=== PATIENT | male | born 1995 | race Caucasian/White ===

== ENCOUNTER 2024-12-08 09:22 | Emergency (ER) | payer OTHER, SELFPAY ==
[2024-12-08 09:24] VITALS: BP 146/110
--- NOTE | 2024-12-08 10:43 | ED.GENMED ---
History of Present Illness
General
Chief Complaint: Throat Problem
Source: patient
Time Seen by Provider: 12/08/24 10:35
Nursing documentation reviewed up to this point in time: agreed with
History of Present Illness
History of Present Illness:
Patient is a 29-year-old male who presents to the ER for evaluation. He reports prior to arrival he was taking a large glucosamine pill and instead of swallowing he believes he inhaled a thinks he aspirated the pill. He does however feel a'
scratchy sore sensation' in his throat when he swallows. He reports he is able to swallow his own secretions he is anxious and was coughing and vomiting.
He denies any actual shortness of breath.
Past History
Past History
ED Past Medical History: None; Negative Asthma, HTN, Hypercholesterolemia or NIDDM
ED Past Surgical History: Other (Right 9th and 10th rib surgery)
Social History
Tobacco: Non-smoker
Alcohol: None
Personal:
Living: with family
Review of Systems
Review of Systems
Allergies reviewed?: Yes
All Other Systems: ROS reviewed and negative except as documented in HPI and ROS
Constitutional: Reports no symptoms
Respiratory: Reports other (pt feels that he 'aspirated a pill' )
Cardiac: Reports no symptoms
ABD/GI: Reports no symptoms
Musculoskeletal: Reports no symptoms
Skin: Reports no symptoms
Neurological: Reports no symptoms
Psychiatric: Reports no symptoms
Phy Exam
General Physical Exam
General Presentation: no apparent distress
General age: appears stated age
General Skin: warm and dry
General Habitus: normal
General Mental: alert
General Hydration: appears well hydrated
ENT Exam
ENT Exam: EOMI, neck supple and other (No drooling pharynx nml tolerating secretions well )
Cardiovascular Exam
Cardiovascular Exam: tachycardia
Pulmonary Exam
Pulmonary Exam: lungs clear, no respiratory distress, no stridor and no cough
Course
Orders/Labs/Results
Orders:
Orders
12/08/24 10:42
Chest [CR Chest - 2 Views ] Urgent
Comment:
Reason For Exam: possible fb aspiration
12/08/24 12:18
Vital Signs- Treatment ONCE
Frequency: Once
Vital Signs
Initial and Last Documented VS:
Initial Vital Signs
Temp Pulse Resp BP Pulse Ox
98.1 F 132 20 146/110 100
12/08/24 09:24 12/08/24 09:24 12/08/24 09:24 12/08/24 09:24 12/08/24 09:24
Last Documented Vital Signs
Temp Pulse Resp BP Pulse Ox
98.1 F 102 18 148/94 100
12/08/24 09:24 12/08/24 12:29 12/08/24 12:29 12/08/24 12:29 12/08/24 12:29
MDM/Problems Addressed
MDM/Problems Addressed:
As documented patient is a 29-year-old male who presented to the ER for evaluation. Patient was taking a large glucosamine capsule and he coughs inhaled and was not sure if he aspirated. He however at the same time describes feeling irritation in
his throat. He is able to swallow his own secretions there is no drooling. There is no stridor his lungs are clear he is not toxic-appearing, not hypoxic x-ray negative for foreign body x-ray negative for any other additional findings. Patient is
very anxious it is possible that he scraped his esophagus.
Discussed with patient cool soothing nonirritating foods and liquids and if needed outpatient follow-up with ENT.
*Radiology
Radiology exam reviewed: radiology read reviewed
*Pulse Oximetry
Patient hypoxic: no
*Critical Care Note
Total Time (30-74mins, 75-104mins- exclusive of procedures): Not Applicable
ED Attending Note
-
Portions of this chart may have been created with voice recognition software.� Occasional wrong word or��sound alike� substitutions may have occurred due to the inherent limitations of voice recognition software.
Discharge Plan
Departure
Patient Disposition: Home (Routine Discharge)
Date of Disposition: 12/08/24
Time of Disposition: 12:24
Patient with high blood pressure during this ER visit?: Yes
Condition: Fair
Covid-19: Not Applicable
Discharge Problem:
Throat irritation
Instructions: BLOOD PRESSURE
Prescriptions:
No Action
No Current Medications
0
Referrals:
Yovani Santana DO [Family Provider] -
Handy Alexander MD [Active] -
Activity Restrictions/Additional Instructions:
As discussed soothing cool liquids and foods.
Follow-up with ENT as needed in the next several days call Tuesday to make an appointment. Follow-up with your family doctor. Return her to the ER for any worsening of symptoms including difficulty breathing or swallowing/swallowing your own
secretions
Interventions
Interventions:
*Risk Screen - Suicide Last Done: 12/08/24 11:20
*General Assessment Last Done: 12/08/24 11:20
*Neglect/Abuse Screening Last Done: 12/08/24 11:20
*ED- Fall Risk Assessment Last Done: 12/08/24 11:20
*ED COVID-19 Vaccine History Last Done: 12/08/24 11:20
*Nursing Disposition Last Done: 12/08/24 12:49
ED-EENT Assessment Last Done: 12/08/24 11:20
ED- Pulmonary Assessment Last Done: 12/08/24 11:20
Discharge Date and Time
Discharge Date/Time: 12/08/24 12:50
Print Language: NAURUAN
[2024-12-08 12:29] VITALS: BP 148/94
== END 2024-12-08 12:50 | disposition home or self-care (01) ==
LOC: EMR 09:22
PROVIDERS: EMERGENCY PHYSICIAN Emergency Medicine; FAMILY PHYSICIAN Family Medicine
DX: R07.0 Pain in throat (principal)
CPT/HCPCS: 99283; 71046

== ENCOUNTER 2025-09-16 14:31 | Emergency (ER) | payer OTHER, SELFPAY ==
[2025-09-16] VITALS (38 sets, daily range): BP systolic 54–145; BP diastolic 12–117; PULSE 124–163; BMI 23.1
[2025-09-16 14:54] LABS: Hematocrit 43.6 % (39.0-52.0); Hemoglobin 13.1 g/dL (13.0-18.0); Mean Corp Hgb Conc. 30.0 g/dL (33.0-37.0); Mean Corpuscular Volume 95.8 fL (80.0-94.0); Platelet Count 150 10^3/uL (130-400); Red Cell Dist. Width 11.9 % (11.5-14.5)
[2025-09-16 14:59] LABS: INR 2.38; PT 26.2 Sec (11.4-14.6)
[2025-09-16 15:14] LABS: Nucleated Red Blood Cells % 1.1 % (-)
--- NOTE | 2025-09-16 15:27 | EDRN ---
Patient arrives at 1426 via EMS after a witnessed arrest. Patient had recent surgery for floating rib on the right side at [facility].
Patient was awake and alert when police arrived and c/o SOB. Patient arrested and police started CPR just before EMS arrived. Patient was intubated in the field and brought to ED.
Patient was intubated using 6.5 ETT measuring 24 at the lip.
Patient was shocked once by EMS for Vfib
A total of 7 epi given by EMS
2 of Atropine given by EMS
Right leg IO inserted by EMS
Patient had no pulse upon arrival and CPR was initiated at 1426. (see code sheet)
--- NOTE | 2025-09-16 15:35 | ED.GENMED ---
History of Present Illness
General
Chief Complaint: CODE
Source: family and ambulance crew
Exam Limitations: none
Time Seen by Provider: 09/16/25 14:31
Nursing documentation reviewed up to this point in time: agreed with
History of Present Illness
History of Present Illness:
30-year-old male presents emergency department via EMS with cardiac arrest. CPR in progress upon arrival. He had a syncope episode after complaining of shortness of breath at home. His called EMS. EMS arrived and he went into cardiac arrest
at 1:25 PM. He had an episode of ventricular fibrillation and was shocked. He did have return of circulation for 5 to 10 minutes. He then went into cardiac arrest again. He was intubated in the field. He was given multiple rounds of
epinephrine. He had surgery to remove a right lower rib about 2 weeks ago at [facility].
Past History
Past History
ED Past Medical History: None; Negative Asthma, HTN, Hypercholesterolemia or NIDDM
ED Past Surgical History: Other (Right 9th and 10th rib surgery)
Social History
Tobacco: Non-smoker
Alcohol: None
Personal:
Living: with family
Review of Systems
Review of Systems
Allergies reviewed?: Yes
All Other Systems: Not applicable
Phy Exam
Physical Exam
Physical Exam:
CODE EXAM:
VITAL SIGNS: No palpable blood pressure, no pulses, no respiration.
GENERAL EXAM: Mottled
EYES: Pupils fixed
ENT: Patient intubated
NECK: No venous distention
RESPIRATORY: Equal breath sounds, post op scar right lower chest
CARDIAC: Absent heart sounds
VASCULAR: Absent pulses
ABDOMEN: Soft no masses
GUAIAC: Not done
MUSCULOSKELETAL: Unable to evaluate strength
EXTREMITIES: No edema or contractures
SKIN: No rash
PSYCH: Mood, affect unable to evaluate
Course
Orders/Labs/Results
Orders:
Orders
09/16/25 14:32
Alteplase [Activase] 50 mg .ROUTE .STK-MED ONE
Alteplase [Activase] 50 mg .ROUTE .STK-MED ONE
09/16/25 14:42
Electrocardiogram (*1) Urgent
Reason for Study: Chest Pain
EKG- Treatment ONCE
09/16/25 14:44
Complete Blood Count/With Diff Urgent
Lactate Level [Lactic Acid] Urgent
Prothrombin Time Urgent
09/16/25 14:58
CT Head W/o Iv Contrast Urgent
Comment:
Reason For Exam: cardiac arrest
CT Pe/abd/pel W Urgent
Comment:
Reason For Exam: cardiac arrest
09/16/25 15:20
Basic Metabolic Panel Urgent
Troponin I Urgent
09/16/25 15:37
ABG [Arterial Blood Gas] Urgent
%Oxygen/Room Air: 85/100%fio2
09/16/25 15:43
Cardiothoracic Surgery Consult Urgent
Consulting Provider: Rajinder Hoffman
Was physician already notified: Yes
09/16/25 15:44
Echo 2D MMode Color/Doppler Stat
Reason for Study: cardiac arrest
09/16/25 15:51
EPINEPHrine 4 mg/250 mL NSS [Adrenalin] 4 mg in 250 ml IV NOW
Initial dose in mcg/min, then titrate:: 4
Titrate to keep:: MAP > 65 mmHg
Titrate by mcg/min:: 0.5-1 mcg/min
Frequency of titrations (minutes):: 5
Maximum dose in mcg/min:: 10
Begin to taper infusion when:: Remained at goal for 4hrs
Taper by mcg/min:: 0.5-1 mcg/min
Frequency of taper (minutes) if patient maintains goal:: 30
Taper to off?: Yes
If infusion off & no longer maintaining goal:: Contact Provider
09/16/25 15:59
Prothrombin Time Stat
09/16/25 16:06
Lactated Ringers [Lr] 500 ml IV BOLUS
09/16/25 16:10
Midazolam HCl [Versed] 2 mg .ROUTE .STK-MED ONE
Propofol 1,000,000 Mcg/100 ml [Diprivan] 1,000,000 mcg in 100 ml .ROUTE .STK-MED
09/16/25 16:11
Sodium Bicarbonate 100 meq .ROUTE .STK-MED ONE
09/16/25 16:15
CR Chest Portable - 1 View Stat
Reason For Exam: CODE
09/16/25 16:28
Fentanyl Citrate/Pf [Sublimaze] 100 mcg .ROUTE .STK-MED ONE
09/16/25 16:37
Vecuronium [place] [Norcuron] 7 mg IV Q1HPRN PRN
Vital Signs As Directed
Frequency: Other
Additional Instructions:: every 15 minutes x 1 hour
09/16/25 16:45
NORepinephrine 4 MG/250 ML [Levophed] 4 mg in 250 ml IV PER PROTOCOL
09/16/25 16:59
Albumin Human 5% 250 ml [Albumin 5%] 12.5 grams in 250 ml IV NOW
09/16/25 17:00
FentaNYL 1,000 MCG/100 ML [Sublimaze] 1,000 mcg in 100 ml IV PER PROTOCOL
Fentanyl Citrate/Pf [Sublimaze] 50 mcg IV [id number] PRN
Propofol 1,000,000 Mcg/100 ml [Diprivan] 1,000,000 mcg in 100 ml IV PER PROTOCOL
09/16/25 17:15
Carboxymethylcellulose [Refresh Celluvisc Gel] See Dose Instructions OPHTH NOW ONE
09/16/25 17:23
Sodium Bicarbonate 200 meq .ROUTE .STK-MED ONE
09/16/25 17:34
Sodium Bicarbonate 100 meq IV NOW STA
09/16/25 17:37
Calcium Gluconate 1 gram/100mL [Calcium Gluconate] 1 gram in 100 ml IV ONCE
09/16/25 17:45
Dextrose 5%/Water 1000 ml [D5w] 1,000 ml Sodium Bicarbonate 150 meq IV 75 mls/hr
09/16/25 18:00
Flush (0.9% Sodium Chloride) [Flush (Nss)] See Dose Instructions IV PER PROTOCOL
09/16/25 18:15
NORepinephrine 4 MG/250 ML [Levophed] 4 mg in 250 ml IV PER PROTOCOL
Initial dose in mcg/min, then titrate:: 4
Titrate to keep:: MAP > 65 mmHg
Titrate by mcg/min:: 1-2 mcg/min
Frequency of titrations (minutes):: 5
Maximum dose in ICU in mcg/min:: 30
Maximum dose in IMU in mcg/min:: 8
Maximum dose in IVU in mcg/min:: 4
Begin to taper infusion when:: Remained at goal for 4hrs
Taper by mcg/min:: 1-2 mcg/min
Frequency of taper (minutes) if patient maintains goal:: 30
Taper to off?: Yes
If infusion off & no longer maintaining goal:: Contact Provider
09/16/25 18:30
ABG with Lytes, iCa [Arterial Blood Gas, Lytes, iCa] Stat
%Oxygen/Room Air: 70% FiO2
Lactate Level [Lactic Acid] Stat
09/16/25 19:00
Heparin 37184 Units/250 ml 25,000 units in 250 ml IV PER PROTOCOL
09/16/25 19:08
Triglycerides Routine
Comment: baseline levels with propofol infusion
09/16/25 19:15
Propofol 1,000,000 Mcg/100 ml [Diprivan] 1,000,000 mcg in 100 ml IV PER PROTOCOL
Indication:: Light Sedation
Begin Infusion:: Now
Goal:: RASS 0 to -2
Maximum dose in mcg/kg/min:: 50
Initial Dose in mcg/kg/min:: 30
Titration Instructions:: Titrate by 5-10 mcg/kg/min every 5 minutes until RASS 0 to -2 achieved.
Taper Instructions:: If RASS is at or below goal for 4 consecutive hours decrease infusion by
Taper Instructions:: 5-10 mcg/kg/min every 2 hours to off.
Over-sedation Instructions:: If CPOT 0-2 (at goal) AND RASS -3 to -5 (below goal) decrease sedative by
Over-sedation Instructions:: 50% first. If pain score remains at goal and RASS remains below goal in
Over-sedation Instructions:: 1 hour, decrease opioid infusion by 50%.
Notify provider:: immediately if patient exhibits signs/symptoms of propofol-related
Notify provider:: infusion syndrome.
Additional Instructions:: Patient MUST be mechanically ventilated and MUST recieve analgesia
09/16/25 19:32
Cr Chest Portable [CR Chest Portable - 1 View] Urgent
Comment:
Reason For Exam: ETT placement
Reason Study Needs to be Portable: Unable to Transport
09/16/25 19:41
Cr Chest Portable [CR Chest Portable - 1 View] Urgent
Comment:
Reason For Exam: ETT placement
Reason Study Needs to be Portable: Patient Unstable
09/16/25 19:49
Sodium Bicarbonate 150 meq .ROUTE .STK-MED ONE
09/16/25 20:21
Potassium Urgent
09/17/25 08:00
Polyethylene Glycol Powder [Miralax] 17 grams TUBE DAILY
09/19/25 06:00
Triglycerides Q3D
Comment: every 72 hours while patient is on propofol
09/22/25 06:00
Triglycerides Q3D
Comment: every 72 hours while patient is on propofol
09/25/25 06:00
Triglycerides Q3D
Comment: every 72 hours while patient is on propofol
Abnormal Lab Results
09/16/25 09/16/25 09/16/25
14:44 15:20 15:37
WBC 12.9 H 10^3/uL
(4.8-10.8)
RBC 4.55 L 10^6/uL
(4.70-6.10)
MCV 95.8 H fL
(80.0-94.0)
MCHC 30.0 L g/dL
(33.0-37.0)
Abs Immat Gran (auto) 0.5 H 10^3/uL
(0-0.05)
Absolute Lymphs (auto) 7.4 H 10^3/uL
(1.2-3.4)
Absolute Monos (auto) 1.0 H 10^3/uL
(0.1-0.6)
Immature Gran % 3.8 H %
(0-0.5)
Neutrophils % 28.8 L %
(42.2-75.2)
Lymphocytes % 57.3 H %
(20.5-51.1)
PT 26.2 H Sec
(11.4-14.6)
pH < 6.80 L*
(7.35-7.45)
pCO2 88 H* mmHg
(35-48)
HCO3
ABG O2 Sat (Measured) 92.5 L %
(94-98)
Chloride 94 L mmol/L
(98-107)
Carbon Dioxide 10 L* mmol/L
(22-30)
Glucose 155 H mg/dl
(70-99)
Lactic Acid 23.1 H* mmol/L
(0.7-2.0)
Calcium 10.9 H mg/dl
(8.4-10.2)
Troponin I 0.348 H* ng/ml
12/15/
18:30
WBC
RBC
MCV
MCHC
Abs Immat Gran (auto)
Absolute Lymphs (auto)
Absolute Monos (auto)
Immature Gran %
Neutrophils %
Lymphocytes %
PT
pH 7.21 L
(7.35-7.45)
pCO2
HCO3 18.8 L mmol/L
(21-28)
ABG O2 Sat (Measured)
Chloride
Carbon Dioxide
Glucose
Lactic Acid 15.1 H* mmol/L
(0.7-2.0)
Calcium
Troponin I
09/16/25 14:44
Vital Signs
Initial and Last Documented VS:
Initial Vital Signs
Pulse Resp
133 53
09/16/25 14:49 09/16/25 14:49
Last Documented Vital Signs
Temp Pulse Resp BP
93.6 F L 147 33 98/72
09/16/25 15:51 09/16/25 20:00 09/16/25 20:00 09/16/25 20:00
MDM/Problems Addressed
Differential Diagnosis Includes:
Acute coronary syndrome, bilateral PE, dysrhythmia
MDM/Problems Addressed:
30-year-old male arrived as cardiac arrest. Extensive CPR and ACLS provided, tPA given to patient upon arrival due to high suspicion for pulmonary embolism. Patient had cardiac arrest and return of spontaneous circulation multiple times, and then
was maintained on a Levophed drip. There was difficulty maintaining his oxygenation, despite effective endotracheal intubation. [facility] ECMO team consulted, who accepted patient. Cardiothoracic surgery Dr. Hoffman and
team initiated ECMO. Some improvement seen on ABG and maintenance of oxygenation. Patient had decorticate movement and CT scan shows signs of anoxic brain injury. Discussed at length with family the likelihood of chronic disability and the
severity and critical condition. Helicopter unavailable due to weather, currently awaiting ground ECMO team from [place].
*Radiology
Radiology exam reviewed: radiology read reviewed (CT head shows no intracranial hemorrhage, generalized diminished white matter attenuation likely reflecting early anoxic encephalopathy, CT chest/ab/pel shows bilateral pe w/ large clot burden, rib
fractures, sternal fracture)
*Pulse Oximetry
SaO2: 78
Oxygen Mode of Delivery: Ventilator
Patient hypoxic: yes
*EKG
Interpreted by ED Provider?: Yes
EKG Intrepretation Date: 09/16/25
EKG Intrepretation Time: 14:43
Interpretation: abnormal
Comparison EKG: no comparison EKG present
Heart Rate: 144
Rate: tachycardiac
Rhythm: sinus tachycardia
[place]: normal axis
Interval: normal interval
QRS Pattern: right bundle branch block
Ischemia: non-specific ST changes
*Occupational Safety Specialist Interpretation
Rate: tachycardiac
Interpretation: abnormal
Heart Rate: 130
Rhythm: sinus tachycardia
*Critical Care Note
Total Time (30-74mins, 75-104mins- exclusive of procedures): 150
comment:
Critical care statement: A total of 150 minutes of critical care time was provided for this patient. This includes management of unstable vital signs, evaluation of the patient at bedside, reviewing the patient's pertinent medical records,
discussion with consultants, review of old EKGs and review of pertinent medical records. This time with separate from time utilized to perform the aforementioned documented procedures
Patient Management
Social determinants of health affecting care: Living situation and Strong social support
Discussion with other providers: Floorworker (cardiology Dr. Rodriguez, CT surgery Dr. Hoffman)
Escalation/DeEscalation of care consider admission/obs:
transfer indicated for ECMO
ED Attending Note
-
Portions of this chart may have been created with voice recognition software.� Occasional wrong word or��sound alike� substitutions may have occurred due to the inherent limitations of voice recognition software.
Discharge Plan
Departure
Patient Disposition: Acute Care Hospital
Date of Disposition: 09/16/25
Time of Disposition: 16:06
Patient with high blood pressure during this ER visit?: No
Condition: Critical
Discharge Problem:
Bilateral pulmonary embolism, Cardiac arrest
Prescriptions:
No Action
No Current Medications
0
Referrals:
UNKNOWN,NO INTERVIEW [Family Provider]
Hospital Transfer
Other hospital: [facility]
I certify that the patient requires transfer: Yes
Discussed case with accepting physician: [facility]
Reason for transfer: higher level of care, availability of service and specialties available
Interventions
Interventions:
ED- Cardiac Assessment Last Done: 09/16/25 15:40
ED- Pulmonary Assessment Last Done: 09/16/25 15:38
Discharge Date and Time
Print Language: FINNISH
[2025-09-16 15:48] LABS: Blood Urea Nitrogen 9 mg/dl (9-20); Calcium 10.9 mg/dl (8.4-10.2); Carbon Dioxide 10 mmol/L (22-30); Chloride 94 mmol/L (98-107); Estimated Creatinine Clearance 74 ml/min; Glucose 155 mg/dl (70-99); Sodium 135 mmol/L (135-145); eGFR > 60.00
[2025-09-16 15:51] LABS: O2 Saturation % 92.5 % (94-98); PO2 101 mmHg (83-108)
[2025-09-16 15:57] LABS: PCO2 88 mmHg (35-48)
[2025-09-16 15:58] LABS: Troponin I 0.348 ng/ml
--- NOTE | 2025-09-16 16:04 | CON.CAR ---
Consultation
Consultation Request
Date/Time Consultation Requested: September 16, 2025 3:48 PM
Date/Time Consultation Performed: September 16, 2025 4:18 pm
Requesting Provider: ER and CTS
Performing Provider: Miguel Rodriguez
Reason for Consultation: Cardiac arrest
Medical History
-
Chief Complaint: Cardiac arrest
History of Present Illness:
30-year-old male with history of thoracic outlet syndrome and first rib removal who presented unconscious after cardiac arrest. The HPI was obtained through chart review and in discussion with other physicians/PAs and emergency room staff as
patient is intubated.
Past Medical History
Past Medical History: Other (thoracic outlet syndrome)
Past Surgical History: Other (first rib removal )
Social History
Tobacco: Non-Smoker
Alcohol: None
Personal:
Living: With Family
Family History
Family History: Unable to Obtain
Allergies / Home Medications
Allergy/AdvReac Type Severity Reaction Status Date / Time
No Known Allergies Allergy Verified 12/08/24 09:25
�Medication �Instructions �Recorded �Confirmed �Type
No Meds [No Current Medications] 06/19/20 06/19/20 History
Review of Systems
-
Unable to obtain full review of systems at this time due to: Patient Intubation
Physical Exam
Vital Signs
Temp Pulse Resp BP
93.6 F L 118 18 115/75
09/16/25 15:51 09/16/25 15:20 09/16/25 15:20 09/16/25 15:20
Lab Results
09/16/25 14:44
Troponin I 0.348 ng/ml H* 09/16/25 15:20
Physical Exam
General: Intubated
HEENT: Normocephalic
Cardiac: S1/S2 and Regular Rhythm
Skin: Warm and Dry
Neuro: Other (intubated )
Psych: Other (intubated )
Impression / Plan
-
A/P: 30-year-old male with past medical history of thoracic outlet syndrome status post first rib removal is here after cardiac arrest. A limited echocardiogram was performed. His overall LV function appears normal. However, his RV appears
dilated with reduced systolic function, concerning for possible pulmonary embolism. We discussed with CT surgery about our findings and he will undergo [facility]. Additionally, he will then be transferred to [facility].
Data Reviewed
-
EKG: Tracing Personally Visualized and interpreted (sinus rbbb)
Labs: Labs Reviewed by me
Critical Care Time (in minutes): 31
[2025-09-16] MEDS: ADRENALIN 250 IV (17:22)
--- NOTE | 2025-09-16 17:26 | EDRN ---
Norepi was stopped and Epi infusion started.
--- NOTE | 2025-09-16 17:37 | W.PN.UPDATE ---
Update Note
Progress Note Update
BEDSIDE PROCEDURE NOTE:
Patient seen during ECMO code, after patient was put on [facility] ecmo by attending surgeons/CT team, Right radial arterial line placed by me for hemodynamic monitoring. Pt already intubated, small doses of sedation given during ecmo procedure. No local
was used due to patients mental status.
Skin prepped with chloraprep, art line placed and flushed with pressure line. biopatch and clean dressing placed. No complications encountered. Mean arterial pressure 63, no significant waveform to evaluate due to [facility] ecmo.
--- NOTE | 2025-09-16 17:38 | W.PN.CT.SURG ---
CT Surgery Operative Note
-
CARDIAC SURGERY OPERATIVE REPORT
Preoperative Diagnosis: Cardiac arrest likely from massive pulmonary embolus
Postoperative Diagnosis: Same
Procedure(s) Performed:
1. Right femoral venous ECMO cannulation
2. Left femoral arterial ECMO cannulation
3. Distal perfusion limb to left superficial femoral artery
Date of Surgery: 09/16/2025
Comorbidities:
1. Thoracic outlet syndrome, recent first rib resection
Attending Surgeon: Pamela Hopper MD, MPH
Co-surgeon: Rajinder Hoffman MD, MS (assisted in all aspects of cannulation and initiation of ECMO)
Assistants: Rajinder Galvez PA-C assisted with cannulation and all portions of the procedure
Anesthesiology: n/a
Scrub and Circulating RNs: Christine Eduardo, LISA, Sonia Simon, LISA
Selling Manager: Shantanu Small CCP
Anesthesia: Patient was on ventilator, had been intubated in the field during resuscitation
Products: None
Indication(s) for Procedures: This is a 30-year-old male who presented to [facility] emergency department after witnessed code at home. CPR had been initiated in the field, per report patient had syncope after complaint of shortness of breath at home
after which his called EMS and when his cardiac arrest happened at 1325. ACLS was performed with ROSC for approximately 5 to 10 minutes then into another cardiac arrest at which point he was intubated. Patient arrived to ED and extremis,
cardiac surgical team was called for consideration of ECMO given presumed massive PE. A quick bedside echo was performed showing good LV function with significant straining of the RV and severe dilation. Decision was made to proceed with
venoarterial ECMO cannulation.
Description of Procedure: The patient was supine with arms tucked on the side. The groins were shaved, prepped and draped in sterile fashion to access bilateral groins. A sterile ultrasound was used to identify the vessels. We were able to gain
access to the right femoral vein and left common femoral artery and placed J wires. A [address] in each vessel and CXR was used to verify placement. At this point, 10,000u of Heparin were given and we confirmed ACT > 250 after
appropriate time. We serially dilated the track on each side then placed our cannulas without complications. We placed a 17 Fr arterial and 25 Fr venous multistage cannula without complication. Each cannula was then connected to the ECMO lines
ensuring no air within the lines. Placement of cannulas was then confirmed on CXR and ECMO was initiated. A distal perfusion catheter was then placed within the left SFA using ultrasound guidance. The vessel was identified and accessed using
micropuncture needle. A 6Fr sheath was placed using Seldinger technique and this was connected to a pigtail line attached to our arterial cannula. We additionally placed a left femoral venous central line to access for medication administration.
This was done using ultrasound guidance and an additional 6 Setswana sheath was placed.
All instrument, sponge, and needle counts were confirmed to be correct x 2 at the end of the operation. The patient was transferred to the cardiac intensive care unit in critical but stable condition.
I, Dr. Pamela Hopper, was present, scrubbed for, and performed all critical elements of this procedure.
Pamela Hopper MD, MS
Cardiothoracic Surgeon
[facility]
This operative dictation was created using the [employer] dictation system. Please excuse any grammatical, typographical, or 'sound alike' errors
--- NOTE | 2025-09-16 17:46 | EDRN ---
Late notes
Patient was taken to Ct scan at 1501 and returned to ED room 41 at 1518
16French Thermister rivera inserted at 1550, core temp 34.2C
Albumin was given by CHRISTIAN at 1649 and run wide open.
Patient was given versed at 1627
100mcg Fentanyl was given at 1630
10k of Heparin was given at 1617
ECMO was started at 1625
--- NOTE | 2025-09-16 17:50 | EDRN ---
Currently
Patient has epi infusion running at 6mcg/min through left wrist IV
KVO left orange sheath.
Patient has right radial A line for BP.
Solar Energy Advisor is currently bedside monitoring ECMO till pickup time via [facility] at approx 2030
--- NOTE | 2025-09-16 18:05 | EDRN ---
Levophed restarted at this time, initial rate of 4
[2025-09-16] MEDS: LEVOPHED 250 IV (18:06)
[2025-09-16] MEDS: SODIUM BICARBONATE 1150 MEQ IV (18:11)
[2025-09-16 18:42] LABS: B.E. -8.9 mmol/L; HCO3 18.8 mmol/L (21-28); O2 Saturation % 97.8 % (94-98); PCO2 47 mmHg (35-48); PO2 84 mmHg (83-108); Potassium 4.2 mMOL/L (3.5-5.1); Sodium 140 mMOL/L (136-145)
--- NOTE | 2025-09-16 18:48 | EDRN ---
No significant change in the patient's status at this time.
New labs ordered and sent
Patient has non purposeful movement at this time w/ some decorticate posturing.
ETA for [facility] is still approx 2030
[2025-09-16] MEDS: DIPRIVAN 100 IV (19:13)
--- NOTE | 2025-09-16 19:18 | W.PN.UPDATE ---
Update Note
Progress Note Update
Delayed chart entry.
Was called by transfer center from [place] with our ED and CT Surgeon Dr. Pantera Benavides. This is a 30yo male who suddenly collapsed, s/p 1st rib resection done electively at [facility]. He had approximately 45min down time in the field with CPR done by
EMS on site at his home, with additional CPR here with ROSC, but was hemodynamically labile. We discussed his prognosis, and likely cause for cardiovascular collapse to be a massive PE. He was given TPA as well. Surface ECHO revealed a significantly
dilated RV with severely reduced function and empty LV. We ultimately decided that given his age, we would place him on VA ECMO. I had the discussion with his spouse and mother regarding his prognosis. Given the extended down of hypoxia, there is
very likely significant anoxic brain injury. They wished to proceed. Plan will be to initiate VA ECMO at my site, and then transfer to [facility] for additional care.
--- NOTE | 2025-09-16 19:47 | EDRN ---
ETT advanced to 27 at the Lip w/ verification via XRAY.
--- NOTE | 2025-09-16 21:03 | EDRN ---
250ml Albumin infusion started by Plant Attendant Or Assistant Operator
--- NOTE | 2025-09-16 21:05 | EDRN ---
Dr. Hoffman bedside.
Commercial Lines Manager giving calcium chloride push dose along with more bicarb at this time.
[facility] approx 20 minutes for pickup time.
[2025-09-16] MEDS: SUBLIMAZE 50 MCG IV (21:12)
--- NOTE | 2025-09-17 06:17 | ITS.CL.PN ---
[facility] - Procedure Note
Procedure
Procedure Note:
DELAYED ECMO MANAGEMENT NOTE and LINE SWAP:
30yo male, in cardiorespiratory failure with cardiogenic shock, on levo and epi gtts. ECMO initiated with 17F art in LCFA and 15F Venous in RCFV with DPL in L SFA and LCFV 6F sheath for venous access. Once ECMO initiated, he maintained flows between
3.6-4.2 based on volume status.
Assessment / Exam: No purposeful movement, there was some decerebrate posturing, clampign down on ET, and tachypneic. Cold (34 degrees C).
Plan: Give 250 5% albumins as needed for volume to avoid chattering on the lines, maintain slows closer to 4+ LPM on pump, come down on Epi gtt to 2 and ok to maintaining levo as high as 20. Will initiate 50 of propofol gtt as he is clamping down on
ETT and intermittent Fentanyl 50mcg pushes for pain control (seemed to help decrease his RR of 34 to 20s after). Expect him to have some [place] Syndrome once LV starts to fill and he starts to ejected, so monitor ABGs via R Radial. Place vent
onto lung rest settings, elevated PEEP to 10, decreased RR, and TV down to 300. Maintain FiO2 at 60-70 for now based on gas, let ECMO do majority of oxygenation/sweep. Can titrate down sweep as needed.
I swapped the lines to the transport [facility] when they arrived, lines were prepped with Chlorhexadine and allowed to dry, I then double clamped the lines after turning off our ECMO circuit, divided the transport circuit, and then wet mated the
arterial to arterial and venous to venous with no visual bubbles in the lines. We then increased flows on cardiohelp with the appropriate return and forward flow with good visual color change in the corresponding lines.
Critical Care Time: 180mins
[2025-09-17 07:42] LABS: B.E. - POC -3.0 mmol/L; Glucose - POC 212 mg/dl (70-99); HCO3 - POC 23 mmol/L (21-28); Hematocrit - POC 30 % PCV (42-52); Hemodilution- POC Yes; Hemoglobin Calculated - POC 10.1; Ionized Calcium - POC 1.06 mmol/L (1.15-1.33); Lactate - POC 12.19 mmol/L (0.36-0.75); O2 Saturation %Calculated-POC 99.7 % (94-98); PCO2 - POC 46 mmHg (35-48); PO2 - POC 228 mmHg (83-108); POC Comment ECMO; Potassium - POC 3.7 mmol/L (3.5-5.1); Sodium - POC 148 mmol/L (136-145); Specimen Type - POC Arterial; pH - POC 7.31 (7.35-7.45)
[2025-09-17 07:59] LABS: B.E. - POC -19.0 mmol/L; Glucose - POC 134 mg/dl (70-99); HCO3 - POC 14 mmol/L (21-28); Hematocrit - POC 36 % PCV (42-52); Hemodilution- POC Yes; Hemoglobin Calculated - POC 12.4; Ionized Calcium - POC 1.33 mmol/L (1.15-1.33); Lactate - POC 17.16 mmol/L (0.36-0.75); O2 Saturation %Calculated-POC 96.9 % (94-98); PCO2 - POC 73 mmHg (35-48); PO2 - POC 149 mmHg (83-108); POC Comment ECMO; Potassium - POC 4.5 mmol/L (3.5-5.1); Sodium - POC 143 mmol/L (136-145); Specimen Type - POC Arterial; pH - POC 6.91 (7.35-7.45)
[2025-09-17 07:59] LABS: B.E. - POC -11.3 mmol/L; Glucose - POC 121 mg/dl (70-99); HCO3 - POC 17 mmol/L (21-28); Hematocrit - POC 34 % PCV (42-52); Hemodilution- POC Yes; Hemoglobin Calculated - POC 11.7; Ionized Calcium - POC 1.42 mmol/L (1.15-1.33); Lactate - POC 19.12 mmol/L (0.36-0.75); O2 Saturation %Calculated-POC 94.8 % (94-98); PCO2 - POC 50 mmHg (35-48); PO2 - POC 96 mmHg (83-108); Potassium - POC 4.7 mmol/L (3.5-5.1); Sodium - POC 147 mmol/L (136-145); Specimen Type - POC Arterial; pH - POC 7.15 (7.35-7.45)
[2025-09-17 08:00] LABS: ACT+ - POC 376 Seconds (82-134)
[2025-09-17 08:00] LABS: B.E. - POC -8.8 mmol/L; Glucose - POC 167 mg/dl (70-99); HCO3 - POC 19 mmol/L (21-28); Hematocrit - POC 30 % PCV (42-52); Hemodilution- POC Yes; Hemoglobin Calculated - POC 10.2; Ionized Calcium - POC 1.23 mmol/L (1.15-1.33); Lactate - POC 14.11 mmol/L (0.36-0.75); O2 Saturation %Calculated-POC 98.4 % (94-98); PCO2 - POC 49 mmHg (35-48); PO2 - POC 138 mmHg (83-108); POC Comment ECMO; Potassium - POC 3.8 mmol/L (3.5-5.1); Sodium - POC 147 mmol/L (136-145); Specimen Type - POC Arterial; pH - POC 7.20 (7.35-7.45)
[2025-09-17 08:00] LABS: B.E. - POC -8.8 mmol/L; Glucose - POC 136 mg/dl (70-99); HCO3 - POC 19 mmol/L (21-28); Hematocrit - POC 32 % PCV (42-52); Hemodilution- POC Yes; Hemoglobin Calculated - POC 10.9; Ionized Calcium - POC 1.25 mmol/L (1.15-1.33); Lactate - POC 14.94 mmol/L (0.36-0.75); O2 Saturation %Calculated-POC 91.2 % (94-98); PCO2 - POC 48 mmHg (35-48); PO2 - POC 75 mmHg (83-108); POC Comment ECMO; Potassium - POC 4.0 mmol/L (3.5-5.1); Sodium - POC 146 mmol/L (136-145); Specimen Type - POC Arterial; pH - POC 7.21 (7.35-7.45)
[2025-09-17 08:00] LABS: ACT+ - POC 351 Seconds (82-134)
[2025-09-17 08:01] LABS: ACT+ - POC 263 Seconds (82-134)
[2025-09-17 08:01] LABS: ACT+ - POC > 1003 Seconds (82-134)
== END 2025-09-16 22:43 | disposition short-term general hospital (02) ==
LOC: EMR 14:31
PROVIDERS: Nurse Practitioner; CONSULT PHYSICIAN Thoracic Surgery (Cardiothoracic Vascular Surgery); EMERGENCY PHYSICIAN Emergency Medicine; OTHER PHYSICIAN Internal Medicine Cardiovascular Disease
DX: I26.99 Other pulmonary embolism without acute cor pulmonale (principal); I49.01 Ventricular fibrillation; I46.8 Cardiac arrest due to other underlying condition; G54.0 Brachial plexus disorders; R57.0 Cardiogenic shock
CPT/HCPCS: 99291; 99292 ×3; 33947; 33952; 70450; 71045; 71275; 74177; 80048; 82330; 82803; 82805; 83605; 84132; 84302; 84484; 85025; 85610; 93005; 93306; 94002; J2997; Q9967